=== PATIENT | male | born 1960 | race Asian ===

== ENCOUNTER 2018-05-18 19:42 | Emergency (ER) | payer MEDICAID ==
[~2018-05-18] VITALS: Ht 167.6 cm; Wt 80.0 kg
[~2018-05-18 19:42] MED LIST: HCTZ 25MG TAB25 MG PO; NORCO 325 MG-51 TAB PO; PRAVACHOL 40MG40 MG PO
[2018-05-18 20:05] LABS: BASO # 0.1 (0.0-0.2); BASO % 0.9 % (0.0-2.0); EOS # 0.3 (0.0-0.7); EOS % 2.9 % (0-4.0); GRAN # 4.2 (1.4-6.5); GRAN % 45.7 % (42.2-75.2); HEMATOCRIT 45.8 % (42.0-52.0); HEMOGLOBIN 15.3 g/dl (13.5-18.0); LYMPH # 3.6 (1.2-3.4); LYMPH % 38.8 % (20.0-51.0); MEAN CELL VOLUME 84 fl (80.0-100.0); MEAN CORPUSCULAR HEMOGLOBIN 28 pg (27.0-31.0); MEAN CORPUSCULAR HGB CONC 33 g/dl (33.0-37.0); MEAN PLATELET VOLUME 9.5 fl (7.4-10.4); MONO # 1.1 (0.1-0.6); MONO % 11.6 % (1.7-9.3); PLATELET COUNT 275 K/mm3 (130-400); RED BLOOD COUNT 5.47 M/mm3 (4.20-5.60); REDCELL DISTRIBUTION WIDTH-CV 12.7 % (11.5-14.5)
[2018-05-18 20:13] LABS: INR 1.2 (0.8-3.0); PROTHROMBIN TIME 13.7 SECONDS (9.7-12.8)
[2018-05-18 20:15] LABS: ALANINE AMINOTRANSFERASE 54 U/L (21-72); ALBUMIN 4.4 gm/dL (3.5-5.0); ALKALINE PHOSPHATASE 71 U/L (50-136); ANION GAP 8 mmol/L (7-16); AST,SGOT 37 U/L (15-37); BILIRUBIN,TOTAL 0.5 mg/dL (0.0-1.0); BLOOD UREA NITROGEN 17 mg/dL (9-20); CALCIUM 9.4 mg/dL (8.4-10.2); CARBON DIOXIDE 26 mmol/L (22-30); CHLORIDE 106 mmol/L (98-107); GLUCOSE 107 mg/dL (74-106); LIPASE 146 U/L (23-300); POTASSIUM 3.7 mmol/L (3.4-5.0); SODIUM 140 mmol/L (137-145); TOTAL PROTEIN 7.6 gm/dL (6.4-8.2)
[2018-05-18 20:19] LABS: ACETAMINOPHEN < 10 ug/mL (10-30); SALICYLATE < 1.0 mg/dL
[2018-05-18 20:26] LABS: TROPONIN-I < 0.012 ng/mL (0.000-0.035)
[2018-05-18 21:35] LABS: PH 7 (5-8); SQUAMOUS EPITHELIAL None Seen /hpf; URINE APPEARANCE Clear; URINE BACTERIA None Seen /hpf; URINE BILIRUBIN Negative (NEGATIVE); URINE BLOOD 1+ (NEGATIVE); URINE COLOR Straw; URINE GLUCOSE Negative (NEGATIVE); URINE KETONE Negative (NEGATIVE); URINE LEUKOCYTE ESTERASE Negative (NEGATIVE); URINE NITRATE Negative (NEGATIVE); URINE PROTEIN(semi-quant) Negative (NEGATIVE); URINE RBC 0-2 /hpf; URINE UROBILINOGEN Negative (NEGATIVE); URINE WBC 0-2 /hpf
[2018-05-18 21:49] LABS: TRICYCLIC ANTIDEPRESS URINE NEGATIVE
[2018-05-18 22:03] LABS: COLLECTION METHOD CLEAN CATCH
[2018-05-18 23:44] VITALS: BP 160/103; PULSE 73; TEMP 97.7
[2018-05-18] MEDS ORDERED: TOPROL XL 25MG25 MG PO (23:50)
== END 2018-05-19 00:26 | disposition home or self-care (01) ==
LOC: COL.ER 19:42
PROVIDERS: Emergency Medicine
DX: R41.82 Altered mental status, unspecified (principal); I10 Essential (primary) hypertension; Z90.89 Acquired absence of other organs
CPT/HCPCS: J2060; J7030

== ENCOUNTER 2018-09-18 05:09 | Emergency (ER) | payer MEDICAID ==
[~2018-09-18] VITALS: Ht 167.6 cm; Wt 79.5 kg
[~2018-09-18 05:09] MED LIST changes: +TOPROL XL 25MG25 MG PO
[2018-09-18 05:17] VITALS: TEMP 98.1
[2018-09-18 05:55] LABS: BASO # 0.1 (0.0-0.2); BASO % 1.2 % (0.0-2.0); EOS # 0.4 (0.0-0.7); EOS % 5.2 % (0-4.0); GRAN # 2.8 (1.4-6.5); GRAN % 41.7 % (42.2-75.2); HEMATOCRIT 43.5 % (42.0-52.0); HEMOGLOBIN 14.6 g/dl (13.5-18.0); LYMPH # 2.7 (1.2-3.4); LYMPH % 39.7 % (20.0-51.0); MEAN CELL VOLUME 84 fl (80.0-100.0); MEAN CORPUSCULAR HEMOGLOBIN 28 pg (27.0-31.0); MEAN CORPUSCULAR HGB CONC 34 g/dl (33.0-37.0); MEAN PLATELET VOLUME 9.4 fl (7.4-10.4); MONO # 0.8 (0.1-0.6); MONO % 12.1 % (1.7-9.3); PLATELET COUNT 269 K/mm3 (130-400); RED BLOOD COUNT 5.18 M/mm3 (4.20-5.60); REDCELL DISTRIBUTION WIDTH-CV 12.6 % (11.5-14.5)
[2018-09-18 06:01] VITALS: BP 145/87
[2018-09-18 06:06] LABS: ALANINE AMINOTRANSFERASE 22 U/L (21-72); ALBUMIN 4.3 gm/dL (3.5-5.0); ALKALINE PHOSPHATASE 65 U/L (50-136); ANION GAP 9 mmol/L (7-16); AST,SGOT 27 U/L (15-37); BILIRUBIN,TOTAL 0.4 mg/dL (0.0-1.0); BLOOD UREA NITROGEN 17 mg/dL (9-20); CALCIUM 9.2 mg/dL (8.4-10.2); CARBON DIOXIDE 28 mmol/L (22-30); CHLORIDE 105 mmol/L (98-107); GLUCOSE 105 mg/dL (74-106); SODIUM 142 mmol/L (137-145); TOTAL PROTEIN 7.4 gm/dL (6.4-8.2)
[2018-09-18 06:17] LABS: TROPONIN-I < 0.012 ng/mL (0.000-0.035)
[2018-09-18] MEDS ORDERED: NORVASC 5MG5 MG/TAB PO ×2 (06:37→06:38)
[2018-09-18 06:48] VITALS: PULSE 74
== END 2018-09-18 06:49 | disposition home or self-care (01) ==
LOC: COL.ER 05:09
PROVIDERS: Emergency Medicine
DX: R42 Dizziness and giddiness (principal); R53.81 Other malaise; R53.83 Other fatigue; I10 Essential (primary) hypertension

== ENCOUNTER 2018-11-23 08:52 | Day surgery (SDC) | payer MEDICAID ==
[~2018-11-23] VITALS: Ht 167.6 cm; Wt 74.6 kg
[~2018-11-23 08:52] MED LIST changes: +NORVASC 5MG5 MG/TAB PO
[2018-11-23 09:15] VITALS: BP 150/100; PULSE 70; TEMP 97.7
[2018-11-23] MEDS ORDERED: ADVIL200 MG PO (09:28)
--- NOTE | 2018-11-23 09:29 | NUR ---
TO BAY 3 AT 0855- CALL LIGHT IN REACH AND CHILDREN AT BEDSIDE.
[2018-11-23 10:15] VITALS: BP 138/87; PULSE 75; TEMP 97.4
--- NOTE | 2018-11-23 10:15 | NUR ---
Patient arrives to post-op bay 3 via cart, accompanied by Endo RN. Bedside report received. Patient ambulates with steady gait to chair in room. Family is at the bedside. Monitoring applied - VSS and WNL on room air. Denies any pain or nausea. Offered and receives juice and a muffin - tolerates PO well. Call light in reach.
--- NOTE | 2018-11-23 10:27 | NUR ---
Dr. Calix at the bedside at this time. Talks with patient and his family.
[2018-11-23 10:30] VITALS: BP 125/91; PULSE 78
--- NOTE | 2018-11-23 10:30 | NUR ---
Patient resting comfortably in room. VSS and WNL on room air.
[2018-11-23 10:45] VITALS: BP 138/89; PULSE 75
--- NOTE | 2018-11-23 10:55 | NUR ---
Patient has met discharge criteria. PIV removed with catheter intact and hemostasis achieved. Discharge instructions discussed, denies any questions, and verbalizes understanding. Escorted to exit. Discharged to home with ride in private vehicle at 1055.
[2018-11-23 12:49] VITALS: BP 115/81; PULSE 70
== END 2018-11-23 10:55 | disposition home or self-care (01) ==
LOC: SDCO 08:52
DX: L29.0 Pruritus ani (principal)
CPT/HCPCS: OP; J2250; J3010; J7030

== ENCOUNTER → 2019-06-20 | Outpatient (CLI) | payer MEDICAID ==
[~2019-06-20] MED LIST changes: +ADVIL200 MG PO
[2019-06-20 15:17] LABS: ALANINE AMINOTRANSFERASE 49 U/L (21-72); ALBUMIN 4.8 gm/dL (3.5-5.0); ALKALINE PHOSPHATASE 68 U/L (50-136); ANION GAP 10 mmol/L (7-16); AST,SGOT 37 U/L (15-37); BILIRUBIN,TOTAL 0.5 mg/dL (0.0-1.0); BLOOD UREA NITROGEN 15 mg/dL (9-20); CALCIUM 9.5 mg/dL (8.4-10.2); CARBON DIOXIDE 26 mmol/L (22-30); CHLORIDE 105 mmol/L (98-107); CREATININE, serum 0.67 (0.66-1.25); GLUCOSE 114 mg/dL (74-106); SODIUM 140 mmol/L (137-145); TOTAL PROTEIN 8.2 gm/dL (6.4-8.2)
[2019-06-20 15:29] LABS: TROPONIN-I < 0.012 ng/mL (0.000-0.035)
== END ==
LOC: COL.LAB 14:13
PROVIDERS: Family Medicine
DX: R07.9 Chest pain, unspecified (principal)

== ENCOUNTER → 2019-07-15 | Outpatient (CLI) | payer MEDICAID ==
[~2019-07-15] VITALS: Ht 167.8 cm; Wt 79.9 kg
[~2019-07-15] MED LIST changes: +ZESTRIL 20MG TA20 MG PO
[2019-07-15 10:34] VITALS: BP 171/100; PULSE 82
== END ==
LOC: COL.CARD 10:24
DX: R07.9 Chest pain, unspecified (principal); R06.09 Other forms of dyspnea
CPT/HCPCS: A9500